=== PATIENT | female | born 1940 | race American Indian/Alaskan Native ===

== ENCOUNTER 2021-02-26 09:06 | Emergency (ER) | payer MEDICARE, OTHER, SELFPAY ==
[2021-02-26 09:27] VITALS: BP 157/74; PULSE 74; RESP 15; TEMP 36.6; O2SAT 99; BMI 34.9
[2021-02-26 09:33] LABS: RBC Urine None Seen (0-5/HPF)
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
[2021-02-26 09:49] LABS: Bacteria Urine Many (>30); Culture Indicated Urine Specimen Cultured; WBC Urine 10-30/HPF (0-5/HPF)
[2021-02-26] MEDS: cephALEXin 250 MG CAPSULE 500 MG PO (10:06)
[2021-02-26 10:11] VITALS: BP 148/78; PULSE 78; RESP 16; O2SAT 97
== END 2021-02-26 10:13 | disposition home or self-care (01) ==
PROVIDERS: Emergency Provider Emergency Medicine
DX: N39.0 Urinary tract infection, site not specified (principal)
CPT/HCPCS: 81003; 81015; 87077; 87086; 87186; 99283

== ENCOUNTER → 2022-10-14 12:43 | Outpatient (CLI) | payer MEDICARE, OTHER, SELFPAY | PROVIDERS: Visit Provider Student in an Organized Health Care Education/Training Program | DX: M54.9 Dorsalgia, unspecified (principal); R30.0 Dysuria | CPT/HCPCS: 87077; 87086; 87186 ==

== ENCOUNTER → 2025-01-07 13:39 | Outpatient (CLI) | payer OTHER, MEDICAID, SELFPAY ==
--- NOTE | 2025-01-07 13:41 | DI.US.S_ITS ---
PROCEDURE: US THYROID INDICATIONS: MULTINODULAR THYROID TECHNIQUE: Real-time scanning was performed of the thyroid gland, with image documentation. COMPARISON: None. FINDINGS: Thyroid: Right lobe measures 5.5 x 2.0 x 1.2 cm. Left lobe measures 4.7 x 1.9 x 1.3 cm. Isthmus is 0.2 cm thick. Echotexture is heterogeneous. Nodule number: 1 Location: Right lateral mid/inferior Size: 2.6 x 1.2 x 1.3 cm. Composition: Solid Echogenicity: Hypoechoic Shape: wider than tall. Margins: Smooth Echogenic foci: None Total points: 4 ACR TI-RADS category: Moderately suspicious Nodule number: 2 Location: Left mid medial Size: 1.6 x 0.8 x 0.7 cm. Composition: Mixed cystic and solid Echogenicity: Isoechoic Shape: Wider than tall Margins: Smooth Echogenic foci: None Total points: 2 ACR TI-RADS category: Not suspicious Nodule number: 3 Location: Left mid/ lateral Size: 1.0 x 0.6 x 0.7 cm. Composition: Solid Echogenicity: Isoechoic Shape: wider than tall. Margins: Smooth Echogenic foci: None Total points: 3 ACR TI-RADS category: Mildly suspicious Nodule number: 4 Location: Left inferior Size: 1.5 x 1.4 x 1.1 cm. Composition: Solid Echogenicity: Hypoechoic Shape: wider than tall. Margins: Smooth Echogenic foci: None Total points: 4 ACR TI-RADS category: Moderately suspicious Miscellaneous: Nonenhancing echogenic foci inferior to the right thyroid gland measuring up to 1.0 cm. Similar appearing echogenic and nonvascular focus inferior to the left thyroid gland measuring up to 0.8 cm. Findings may represent possible lymph nodes. IMPRESSION: Right 2.6 cm moderately suspicious nodule (nodule 1) meets size criteria for ultrasound-guided FNA per guidelines below. Left inferior 1.5 cm moderately suspicious nodule (nodule 4.) meets size criteria for ultrasound-guided FNA per guidelines below. One year ultrasound imaging follow-up for mildly suspicious left thyroid nodule 3. Echogenic foci inferior to the bilateral thyroid glands. Findings may represent possible lymph nodes. Attention on follow-up imaging. ACR TI-RADS definitions and recommendations: TI-RADS 1 (benign): 0 points. FNA not needed. TI-RADS 2 (not suspicious): 2 points. FNA not needed. TI-RADS 3: 3 points. * FNA if 2.5 cm or larger, follow up if 1.5 cm or larger (at 1, 3, and 5 years). TI-RADS 4: 4-6 points. * FNA if 1.5 cm or larger, follow up if 1 cm or larger (at 1, 2, 3, and 5 years). TI-RADS 5: 7 points or more. * FNA if 1 cm or larger, follow up if 0.5 cm or larger (every year for 5 years). Approved by: Monique Schultz M.D.,Ph.D. on 01/11/2025 at 8:30
== END ==
PROVIDERS: PCP Physician Assistant; Referring Provider Physician Assistant; Visit Provider Physician Assistant
DX: E04.2 Nontoxic multinodular goiter (principal)
CPT/HCPCS: 76536